=== PATIENT | female | born 1950 | race Caucasian/White ===

== ENCOUNTER → 2017-02-06 | Day surgery (SDC) | payer OTHER ==
[~2017-02-06] MED LIST: CLARITIN10 MG PO; FLUOXETINE HCL20 M1 PO; MONTELUKAST SOD10 MG PO; MOTRIN IB200 M1 PO; NAPROXEN PO; PANTOPRAZOLE SO20 MG PO; PROTONIX PO; PROZAC PO; TOVIAZ4 MG PO; TRIMPEX100 MG; VALTREX PO; [UNRECOGNIZED DRUG - REMARK]
--- NOTE | ~2017-02-06 | OR ---
Unit #: [id number] #: [id number] Patient: YVONNE NICOLAS [id number] [address] [place], [place] [address] [id number] O MR#: [id number] NAME: YVONNE NICOLAS ROOM: Date of Procedure: 02/06/2017 Admission Date: 02/06/2017 Surgeon: Antwon Zavala M.D. : 1950 Attending Physician: Antwon Zavala M.D. Primary Care Physician: Liliana Snowden M.D. OPERATIVE REPORT PREOPERATIVE DIAGNOSIS Colorectal cancer screening in a patient with high risk for colon cancer having had previous history of high risk for colon cancer. PROCEDURE PERFORMED Colonoscopy up to cecum and terminal ileum. POSTOPERATIVE DIAGNOSES Completely normal examination up to cecum and terminal ileum. The patient did not have any polyps, diverticula, or hemorrhoids. RECOMMENDATIONS Repeat colonoscopy in 5 years. SEDATION USED MAC. DESCRIPTION OF PROCEDURE Following detailed explanation of the potential risks and complications of a colonoscopy, namely perforation, bleeding, and complications related to sedation, the patient was brought to GI lab and laid in the left lateral decubitus position. A digital rectal examination was performed, which was normal. Lubricated tip of the Olympus video colonoscope was inserted through the anus and advanced under direct vision. The scope was advanced past rectosigmoid into descending colon. No diverticula were noted in this area. The scope tip was then navigated all the way up to cecum with visualization of the ileocecal valve and the appendiceal orifice. Preparation was excellent with good visualization and photodocumentation was obtained. Last few inches of terminal ileum were also visualized after intubation of the ileocecal valve and appeared normal. Successive segments of the colonic mucosa were examined upon withdrawal and appeared unremarkable. There being no polyps, mass lesions, AVMs, or diverticula. The patient did not have any hemorrhoids at anal verge. The scope was then withdrawn and the patient returned to the recovery area. She tolerated the procedure without any postprocedure complications. The examination was done using a therapeutic colonoscope to avoid formation of loops. Dictated by... Antwon Zavala M.D. Unit #: [id number] #: [id number] Patient: YVONNE NICOLAS ELINA/agustin TD: 02/06/2017 12:36 JOB #: [id number] CC: Liliana Snowden M.D. OPERATIVE REPORT Page 1 of 1 X Antwon Zavala MD PROCEDURE OPERATIVE NOTE
== END | disposition home or self-care (01) ==
LOC: COPS 06:38
DX: Z12.11 Encounter for screening for malignant neoplasm of colon (principal); K21.9 Gastro-esophageal reflux disease without esophagitis; E66.01 Morbid (severe) obesity due to excess calories; M19.90 Unspecified osteoarthritis, unspecified site; Z85.038 Personal history of other malignant neoplasm of large intestine; Z88.1 Allergy status to other antibiotic agents; Z88.8 Allergy status to other drugs, medicaments and biological substances; Z98.890 Other specified postprocedural states; Z79.899 Other long term (current) drug therapy; Z68.41 Body mass index [BMI] 40.0-44.9, adult; Z90.710 Acquired absence of both cervix and uterus; Z96.642 Presence of left artificial hip joint; Z96.652 Presence of left artificial knee joint